=== PATIENT | female | born 1985 | race Caucasian/White ===

== ENCOUNTER 2019-04-12 12:28 | Emergency (ER) | payer OTHER ==
--- NOTE | 2019-04-12 17:07 | ER ---
Nurse's Notes [facility] Name: Joy Garland Age: 34 yrs Sex: Female : 1985 Arrival Date: 04/12/2019 Time: 12:31 Bed External Waiting Private MD: Diagnosis: Presentation: 04/12 12:33 Presenting complaint: Patient states: Patient reports twisting right ankle and falling aj onto left knee today while walking. Patient is 31 weeks and was instructed to come to ER by provider to have fetus evaluated. Patient reports using home doppler and hearing FHT and reports some movement since fall. Denies falling onto stomach. Care prior to arrival: None. Mechanism of Injury: Fall from standing position. Trauma event details: Injury occurred in the [facility], Injury occurred: in a public building. Injury occurred: April 12, 2019 Injury occurred at: 11:30. 12:33 Acuity: MATTHEW 4 aj 12:33 Method Of Arrival: Ambulatory aj 13:14 Note Patient began having contractions and was taken to Labor and Delivery for aj evaluation. Trauma Activation: Not Applicable Physician: ED Physician; Name: ; Notified At: ; Arrived At: Physician: General Surgeon; Name: ; Notified At: ; Arrived At: Physician: Radiology; Name: ; Notified At: ; Arrived At: Physician: Respiratory; Name: ; Notified At: ; Arrived At: Physician: Lab; Name: ; Notified At: ; Arrived At: Historical: - Allergies: 12:37 No Known Allergies; aj - Immunization history: Last tetanus immunization: - up to date. Primary Survey: 12:33 NO uncontrolled hemorrhage observed. Breathing/Chest: Respiratory pattern: regular, aj Respiratory effort: spontaneous, unlabored. Circulation: Skin color: pink, Skin temperature: warm, dry. Disability Alert. Exposure/Environment: There is no evidence of uncontrolled external bleeding. Assessment: 12:33 General: Appears in no apparent distress. comfortable, Behavior is calm, cooperative, aj appropriate for age. Pain: Complains of pain in anterior aspect of right ankle. Neuro: Level of Consciousness is awake, alert, obeys commands, Oriented to person, place, time, situation, Appropriate for age. Respiratory: Airway is patent Respiratory effort is even, unlabored, Respiratory pattern is regular, symmetrical. Derm: Skin is intact, is healthy with good turgor, Skin is pink, warm \T\ dry. normal. Musculoskeletal: Reports pain in right ankle and left knee. Vital Signs: 12:33 BP 144 / 67; Pulse 101; Resp 16; Temp 98.2; Pulse Ox 98% on R/A; Weight 104.33 kg; aj Height 5 ft. 2 in. (157.48 cm); 12:33 Body Mass Index 42.07 (104.33 kg, 157.48 cm) aj Sobieski Coma Score: 12:33 Eye Response: spontaneous(4). Verbal Response: oriented(5). Motor Response: obeys aj commands(6). Total: 15. Trauma Score (Adult): 12:33 Eye Response: spontaneous(1); Verbal Response: oriented(1); Motor Response: obeys aj commands(2); Systolic BP: > 89 mm Hg(4); Respiratory Rate: 10 to 29 per min(4); Devin Score: 15; Trauma Score: 12 ED Course: 12:31 Patient arrived in ED. mr 12:35 Triage completed. aj 12:37 Arm band placed on left wrist. Patient placed in waiting room, Patient notified of wait aj time. 12:47 Chana Mendoza FNP-C is [facility]. kb 12:47 Caleb Mcpherson MD is Attending Physician. kb Administered Medications: No medications were administered Outcome: 17:02 Patient left the ED. hb Signatures: Chana Mendoza FNP-C FNP-Flavia Anderson, Gina Prado RN, Heather, RN RN hb
== END 2019-04-12 17:02 | disposition left against medical advice (07) ==
LOC: ER 12:28
DX: O26.893 Other specified pregnancy related conditions, third trimester (principal); M25.571 Pain in right ankle and joints of right foot; Z3A.31 31 weeks gestation of pregnancy; Z53.21 Procedure and treatment not carried out due to patient leaving prior to being seen by health care provider
CPT/HCPCS: 99281

== ENCOUNTER 2019-05-17 21:06 | Inpatient (IN) | payer OTHER ==
[2019-05-17] MEDS ORDERED: CARBOPROST TROME 250 MCG/ML IM PRN (22:14)
[2019-05-17] MEDS ORDERED: BUTORPHANOL 1 MG/ML INJ IV PRN (22:14)
[2019-05-17] MEDS ORDERED: PROMETHAZINE 25 MG/ML VIAL IM PRN (22:14)
[2019-05-17] MEDS ORDERED: MEPERIDINE HCL 25 MG/0.5 ML IV PRN (22:14)
[2019-05-17] MEDS ORDERED: Ringers Lactate 1,000 ML IV PRN (22:14)
[2019-05-17] MEDS ORDERED: MIDAZOLAM HCL 2 MG/2 ML INJ IV PRN (22:14)
[2019-05-17] MEDS ORDERED: METHYLERGONOVINE 0.2MG/ML AMP IM PRN (22:14)
[2019-05-17] MEDS ORDERED: LIDOCAINE 1% MPF 30 ML VIAL SQ ONE (22:17)
[2019-05-17 22:49] LABS: Absolute Lymphocytes (CBC) 1.8 K/uL (0.7-4.9); Basophils % 0.3 % (0-1.3); Hematocrit 36.4 % (36.0-45.0); Lymphocytes % 16.8 % (15.3-44.8); MPV 8.3 fL (7.6-11.3); RBC Red Blood Cell Count 3.92 M/uL (3.86-4.86)
[2019-05-17] MEDS ORDERED: Ringers Lactate 1,000 ML IV SCH (23:00)
[2019-05-17 23:45] VITALS: BMI 44.6
[2019-05-18] MEDS ORDERED: FENTANYL/BUPIVACAINE/NS/PF 200 MCG/100 ML BAG EP PRN (05:13)
[2019-05-18] MEDS ORDERED: METHYLERGONOVINE 0.2MG/ML AMP IM ONE (06:08)
[2019-05-18] MEDS ORDERED: ROPIVACAINE HCL 0 ML ONE (06:14)
[2019-05-18] MEDS ORDERED: FENTANYL CITR 100 MCG/2 ML ONE (06:30)
[2019-05-18] MEDS ORDERED: ROPIVACAINE HCL 2 MG/ML 100ML IV ONE (07:00)
[2019-05-18] MEDS ORDERED: LIDOCAINE 1% MPF 30 ML VIAL ONE (07:08)
--- NOTE | 2019-05-18 07:37 | PREOPHP ---
Date of Admission: 05/17/2019 History Of Present Illness: Joy Garland is a 34-year-old, primigravida, with ass isted reproduction technology, seen in conjunction with high-risk physician. No major problems noted in baby, 36 weeks and 4 days at this point. Experienced spontaneous rupture of membranes. Came int o labor and delivery, was only 1 cm at that time. After 5 cm, requested epidural anesthesia, but has since gone to completely dilated, +[address] Perez is here and we will attempt get an epidural in as the patient still wishes the epidural. She is in excellent control of her breathing and has no t shown any signs of pain, but obviously, she is in significant discomfort. Rh positive, immune to R ubella. Negative beta strep screen. Anticipate delivery relatively soon. The rest of the history a nd physical are normal. Family History: Noncontributory. Allergies: SHE HAS NO ALLERGIES. ANTONINA/YOLIE Voice ID: [id number]
[2019-05-18] MEDS ORDERED: DIPHENHYDRAMINE 25 MG TAB/CAP PO PRN (09:09)
[2019-05-18] MEDS ORDERED: Oxycodone HCl/Acetaminophen 1 TAB TAB PO PRN (09:09)
[2019-05-18] MEDS ORDERED: ACETAMINOPHEN 500 MG TAB PO PRN (09:09)
[2019-05-18] MEDS ORDERED: BISACODYL 10 MG RECTAL SUPP RECT PRN (09:09)
[2019-05-18] MEDS ORDERED: OXYTOCIN/LR 20 UNIT/1,000 ML BAG IV SCH ×2 (10:00)
[2019-05-18] MEDS: IBUPROFEN 200 MG TAB PO PRN (10:22)
--- NOTE | 2019-05-18 10:22 | PN ---
At patient's request, Dr. Perez is giving her a spinal block with fentanyl. She is very comfortable. In fact, so comfortable, she cannot feel contractions, but she can feel pressure. We will get her t o start pushing now though. Right now, she does not appear to be pushing adequately. She knows the spinal will not last indefinitely and if we can get the baby out before she becomes uncomfortable and that would be the best approach. We will see if she can coordinate and push correctly. Baby looks good at this point. Vital signs are stable. SUPAC/MODMonae Voice ID: [id number] Report ID: [id number]
--- NOTE | 2019-05-18 10:37 | OP ---
Surgeon: Antonio Philippe MD Joy Garland is a 34-year-old primigravida, 36 weeks 4 days, assisted reproduction ca me in with ruptured membranes, 1 cm dilated vertex, started on light Pitocin augmentation. She is Rh positive, immune to Rubella, and negative beta strep screen. At just about complete dilation, patigertrude nt requested and received spinal block anesthesia with fentanyl by Dr. Perez. This basically stopped the progress. She pushed for about an hour, actually only 30 minutes effectively as the spinal was s tarting to wear off. She delivered spontaneously of an estimated 7-1/2 to 8-pound female, Apgars 9 a nd 9. Midline second-degree laceration simulating episiotomy, first-degree right labia minora lacera tions sutured with 2-0 chromic. The local infiltration used at both places. Schultze delivery of th e placenta, which inspected. Mild uterine hypotonus, 0.2 mg of Methergine IM. Estimated blood loss 400 mL. After repair of the lacerations, patient tolerated all procedures well. Final Diagnoses: Intrauterine gestation with assisted reproduction technology 36 weeks 4 days, spont aneous rupture of membranes, vaginal delivery, spinal block anesthesia, mild uterine hypotonus. ANTONINA/YOLIE Voice ID: [id number] Report ID: [id number]
[2019-05-18] MEDS: Oxycodone HCl/Acetaminophen 1 TAB TAB PO PRN ×2 (15:24→19:40)
[2019-05-18] MEDS ORDERED: Ringers Lactate 1,000 ML IV ONE (16:00)
[2019-05-18] MEDS: DOCUSATE NA/SENNA CONC 1 TAB PO PRN (18:42)
[2019-05-18 20:31] LABS: RPR (Rapid Plasma Reagin) NON-REACT (NON-REACT)
[2019-05-19] MEDS: Oxycodone HCl/Acetaminophen 1 TAB TAB PO PRN ×3 (00:43→14:55)
[2019-05-19] MEDS: DOCUSATE NA/SENNA CONC 1 TAB PO PRN (09:24)
[2019-05-19] MEDS: IBUPROFEN 200 MG TAB PO PRN (14:55)
[2019-05-19 17:34] VITALS: BP 107/60; TEMP 97
--- NOTE | 2019-05-20 05:27 | DS ---
Date of Discharge: 05/19/2019 Hospital Course: A 34-year-old primigravida, assisted reproduction technology 36 weeks 4 days, exper ienced spontaneous rupture of membranes, came in, subsequently delivered uneventfully of an 8 pounds, 1-ounce female, Apgars 9 and 9. Midline second degree laceration repaired with 2-0 chromic, first-d egree laceration of the right labia minora, also repaired with 2-0 chromic local infiltration. Ron grande had a spinal block with fentanyl administered by Dr. Perez. At that time, she was 9-10 cm pushed e ffectively for about half an hour and then delivered the baby. Schultze delivery of the placenta. M ild uterine hypotonus, 0.2 mg of Methergine IM as well as IV drip Pitocin and massage. Estimated blo od loss 400 cc. Rh positive, immune to Rubella, and negative beta strep screen. ; afebril e, ambulating and voiding. Lochia is normal. Her pulse is slightly elevated and has been since she said the last of the . We will get a TSH level to see if her thyroid is caused of the tachy cardia, but she has absolutely no symptoms. If her pulse continues elevated today, we will get a hos pital consult from internal medicine. Patient, however, says she feels good and whenever the baby is dismissed, she will be dismissed as well. Patient requests tramadol for analgesia. She knows all m edicines go through breast milk. No post spinal block problems, but she says she is sore. Final Diagnoses: Intrauterine gestation 36 weeks 4 days, assisted reproduction technology, vaginal d elivery, spinal block with fentanyl, mild uterine hypertonus, tachycardia etiology at this point unkn own. NBC/MODL Voice ID: [id number] Report ID: [id number]
[2019-05-21 06:34] LABS: HBsAG Nonreactive (Nonreactive)
== END 2019-05-19 19:00 | disposition home or self-care (01) | DRG 807 ==
LOC: L&D 21:06 → 2ND-WC 21:49
PROVIDERS: ADMIT Specialist; ATTEND Specialist
PROC: 10E0XZZ Delivery of Products of Conception, External Approach (ICD-10-PCS; principal; 2019-05-18)
PROC: 0KQM0ZZ Repair Perineum Muscle, Open Approach (ICD-10-PCS; 2019-05-18)
DX: O70.1 Second degree perineal laceration during delivery (principal); Z37.0 Single live birth; O62.2 Other uterine inertia; Z3A.36 36 weeks gestation of pregnancy; O75.89 Other specified complications of labor and delivery; R00.0 Tachycardia, unspecified
CPT/HCPCS: 36415; 85025; 86592; 86850; 86900; 86901; 87340; J0595; J2175; J2210; J2550; J2590; J2795; J3010